=== PATIENT | female | born 1965 | race Caucasian/White ===

== ENCOUNTER 2018-07-03 04:15 | Emergency (ER) | payer MEDICAID ==
[~2018-07-03] VITALS: Ht 160 cm; Wt 68.2 kg
[~2018-07-03 04:15] MED LIST: ATOR20TA PO; BACL20TA PO; BUS15T PO; IBUP-1984 PO; LEVO100T9 PO; PROM25TA14 PO
[2018-07-03] MEDS ORDERED: LORazepam 0.5 MG tablet PO STA (05:10)
[2018-07-03 05:48] LABS: ETHANOL < 0.010 GM/DL (0.0-0.010)
[2018-07-03 06:03] VITALS: BP 154/113
[2018-07-03] MEDS ORDERED: LORA-269 PO (06:10)
[2018-07-03 06:15] LABS: CLARITY,URINE CLEAR (Clear); COLOR,URINE YELLOW (Yellow); GLUCOSE, URINE NEGATIVE (Neg); KETONES,URINE NEGATIVE (Neg); LEUKOCYTE ESTERASE ,URINE NEGATIVE (Neg); NITRITES, URINE NEGATIVE (Neg); OCCULT BLOOD,URINE NEGATIVE (Neg); PROTEIN,URINE NEGATIVE (Neg); UROBILINOGEN,URINE 0.2 E.U/dL (0.2-1.0)
[2018-07-03 06:16] LABS: UA COLLECTION TYPE CLN CATCH MIDSTREAM
[2018-07-03 06:26] LABS: URINE AMPHETAMINE SCREEN POSITIVE (Neg); URINE BARBITUATE SCREEN NEGATIVE (Neg); URINE BENZODIAZEPINES SCREEN NEGATIVE (Neg); URINE CANNABINOID SCREEN POSITIVE (Neg); URINE COCAINE SCREEN NEGATIVE (Neg); URINE METHADONE SCREEN NEGATIVE (Neg); URINE OPIATE SCREEN POSITIVE (Neg); URINE PHENCYCLIDINE SCREEN NEGATIVE (Neg)
== END 2018-07-03 06:16 | disposition home or self-care (01) ==
LOC: ER 04:15
DX: F41.9 Anxiety disorder, unspecified (principal); E03.9 Hypothyroidism, unspecified; E78.00 Pure hypercholesterolemia, unspecified; G89.29 Other chronic pain; F15.90 Other stimulant use, unspecified, uncomplicated; F11.90 Opioid use, unspecified, uncomplicated; F17.200 Nicotine dependence, unspecified, uncomplicated; Z59.0 Homelessness; Z79.899 Other long term (current) drug therapy
CPT/HCPCS: 36415; 80305; 80320; 81003; 84443; 85025; 93005; 99285